=== PATIENT | male | born 1975 | race Caucasian/White ===

== ENCOUNTER 2017-03-04 09:29 | Emergency (ER) | payer MEDICAID ==
[~2017-03-04] VITALS: Ht 193 cm; Wt 147.4 kg
[~2017-03-04 09:29] MED LIST: AMOXICILLIN875 MG PO; CEPHALEXIN500 MG PO; FLEXERIL10 MG PO; FLONASE 50 MCG16 GM; HYDROCODONE-APA1 TA1 PO; MEDROL 4MG. DOSE4 MG PO; METHOCARBAMOL750 MG PO; OMEPRAZOLE40 MG PO; PREDNISONE 20MG20 MG PO; VICODIN 5/500 T1 TAB PO
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
[2017-03-04 09:59] LABS: HEMOGLOBIN 17.2 g/dL (14.1-18.0); LYMPH # 3.8 K/mm3 (0.7-4.5); LYMPH % 16.7 % (10-50)
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
--- OUTSIDE RECORDS SUMMARY | 2017-03-04 10:03 | External Medical Summary Rpt ---
Demographics Preferred Language Persian Marital Status Unknown Latter-Day Affiliation Unknown Race Unknown Ethnic Group Unknown Author Author GERARDO Address Unknown Phone Immunization No patient found.
--- OUTSIDE RECORDS SUMMARY | 2017-03-04 10:03 | External Medical Summary Rpt ---
Author Author , MARTÍN RESENDIZ Address Unknown Phone [email or web address] Care Team Providers Care Hotel Front Desk Agent Name Role Phone JR JOSEP VALERA, Unavailable Unavailable JR JOSEP VALERA [facility] Unavailable Unavailable INC[facility] Un[facility] Un[facility], [place] [facility], Unavailable Unavailable [facility] Unavailable Unavailable [facility], [facility], [facility], Unavailable Unavailable [facility] Purpose Continuity of Care Document - 04-02-2015 through 2016 Problems Code Diagnosis DOS Provider Status [id number] OTITIS 01-17-2017 [facility] UNSPECIFIED INC RIGHT EAR K219 GASTRO-ESOP 10-10-2016 [facility] DISEASE INC WITHOUT ESOPHAGITIS [id number] STRAIN 10-10-2016 [facility] INC TENDON LOW BACK INITIAL Z720 TOBACCO USE 10-10-2016 [facility] INC [id number] STRN UNS 04-09-2016 [facility], UP ARM LEVL [facility] [place] [address] 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 [place] [facility] INTERVERTEB RAL DISC 7384 ACQUIRED 04-02-2015 [facility] SP[facility] SERV THESIS [facility]OUND[facility] 36189 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 [facility] THESIS Medications Na ND Rx Da Fi Fi [...] 17 24 PH E 6 90 AR TX MA OP CY 50 MC G SP RA Y AM 57 05 06 20 10 00 CL Ac OX 23 -3 -2 .0 00 IN ti IC 70 1- 3- 00 00 IC ve IL 02 20 20 43 LI 90 17 17 24 PH N 1 89 AR 87 MA 5 CY MG TA BL ET TX 59 02 03 12 3 00 RI [...] AI ZA 75 17 17 22 D TX 0 71 PH IN AR E MA 10 CY MG #3 93 TA 8 BL ET Procedures Procedure DOS Code Location Performer Comment RADEX 40037 [facility] [place] [facility] COMPLETE INC INC MINIMUM 2 VIEWS RADEX 64335 [place] [facility] 5 MEDICAL Y JUS LUMBOSACR SERV AL 2/3 FOUNDATIO VIEWS N Encounters Encounter Start End Date Code Location Performer Type Date OFFICE 89523 [facility] OUT[facility] 7 7 [facility] T VISIT [facility] DON - 7 7 [facility] OUTPATIEN INC T OFFICE 17902 [facility] OUTPATIEN 7 7 MEM [facility] T NEW 10 INC MINUTES [facility]OSPITAL DON - 7 7 MEM H[facility] OUTPATIEN INC T EMERGENCY 63533 MARIA INES VALERA, 6 6 PHYSICIAN [facility] T VISIT MODERATE SEVERITY EMERGENCY 88600 DON 6 6 MEM HOS[facility] T VISIT LOW/MODER SEVERITY HOSPITAL DON Mart 6 6 MEM HOS[facility] OUTPATIEN [facility] T [facility] - 5 5 Y [facility] T
--- OUTSIDE RECORDS SUMMARY | 2017-03-04 10:03 | External Medical Summary Rpt ---
Author Author MARTÍN Rouse, [employer] Organization [employer] Address Unknown Phone Unavailable
--- OUTSIDE RECORDS SUMMARY | 2017-03-04 10:03 | External Medical Summary Rpt ---
Demographics Preferred Language Sinhala Marital Status Unknown Buddhism Affiliation Unknown Race Unknown Ethnic Group Unknown Author Author GERARDO Address Unknown Phone Immunization No patient found.
--- OUTSIDE RECORDS SUMMARY | 2017-03-04 10:03 | External Medical Summary Rpt ---
Author Author , MARTÍN RESENDIZ Address Unknown Phone [email or web address] Care Team Providers Care Roller Coaster Operator Name Role Phone JR JOSEP VALERA, Unavailable Unavailable JR JOSEP VALERA [facility] Unavailable Unavailable INC[facility] Unavailable Unavailable [facility], [place] [facility], Unavailable Unavailable [facility], Unavailable Unavailable [facility], [facility], [facility], Unavailable Unavailable Purpose Continuity of Care Document - 04-02-2015 through 2016 Problems Code Diagnosis DOS Provider Status [id number] OTITIS 01-17-2017 [facility] UNSPECIFIED INC RIGHT EAR K219 GASTRO-ESOP 10-10-2016 [facility]UX [facility] DISEASE INC WITHOUT ESOPHAGITIS [id number] STRAIN 10-10-2016 [facility] FASCIA [facility] INC TENDON LOW BACK INITIAL Z720 TOBACCO USE 10-10-2016 [facility] INC [id number] STRN UNS 04-09-2016 [facility]ICIANS, UP ARM LEVL [facility] RT [place] ENC 33736 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 [place] [facility] INTERVERTEB RAL DISC 7384 ACQUIRED 04-02-2015 [facility] SPONDYLOLIS SERV THESIS [facility]OUNDATION 61826 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 [facility]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 Medications Na ND Rx Da [...] 17 24 PH E 6 90 AR OH MA OP CY 50 MC G SP RA Y AM 57 05 06 20 10 00 CL Ac OX 23 -3 -2 .0 00 IN ti IC 70 1- 3- 00 00 IC ve IL 02 20 20 43 LI 90 17 17 24 PH N 1 89 AR 87 MA 5 CY MG TA BL ET OH 59 02 03 12 3 00 RI [...] AI ZA 75 17 17 22 D OH 0 71 PH IN AR E MA 10 CY MG #3 93 TA 8 BL ET Procedures Procedure DOS Code Location Performer Comment RADEX 21672 [facility] [place] [facility] 6 [facility] COMPLETE INC INC MINIMUM 2 VIEWS RADEX 62693 [place] [facility] 5 MEDICAL Y JUS LUMBOSACR SERV AL 2/3 FOUNDATIO VIEWS N Encounters Encounter Start End Date Code Location Performer Type Date OFFICE 03262 [facility] OUTPATIEN 7 7 [facility] T VISIT [facility] DON - 7 7 [facility] OUTPATIEN INC T OFFICE 32028 DON OUTPATIEN 7 7 MEM H[facility] T NEW 10 INC MINUTES HOSPITAL DON - 7 7 MEM HOS[facility] OUTPATIEN INC T EMERGENCY 90560 MARIA INES VALERA, 6 6 PHYSICIAN JR [facility]P [facility], [facility] T VISIT MODERATE SEVERITY EMERGENCY 90034 DON 6 6 [facility] T VISIT LOW/MODER SEVERITY HOSPITAL DON Mart 6 6 MEM HOS[facility] OUTPATIEN [facility] T [facility] - 5 5 Y [facility] T
[2017-03-04 10:17] LABS: NEUTROPHILS 73 % (42-76)
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
[2017-03-04 12:28] VITALS: BP 170/100
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
== END 2017-03-04 12:31 | disposition short-term general hospital (02) ==
LOC: ER 09:29
PROVIDERS: Emergency Medicine
DX: S27.321A Contusion of lung, unilateral, initial encounter (principal); S30.1XXA Contusion of abdominal wall, initial encounter; K21.9 Gastro-esophageal reflux disease without esophagitis; Z72.0 Tobacco use; W20.8XXA Other cause of strike by thrown, projected or falling object, initial encounter; Y92.009 Unspecified place in unspecified non-institutional (private) residence as the place of occurrence of the external cause
CPT/HCPCS: J2405; Q9967